=== PATIENT | male | born 1980 | race Asian ===

== ENCOUNTER 2021-01-30 12:13 | Emergency (ER) | payer BC ==
[~2021-01-30] VITALS: Ht 177.8 cm; Wt 121.8 kg
[2021-01-30 12:15] VITALS: BP 141/86
[2021-01-30] MEDS ORDERED: HYDROcodone/acetaminophen 10/325mg tab PO ONE (14:20)
== END 2021-01-30 14:34 | disposition home or self-care (01) ==
LOC: ER 12:13 → EDBD 12:13 → ER 14:34
DX: S86.812A Strain of other muscle(s) and tendon(s) at lower leg level, left leg, initial encounter (principal); M79.662 Pain in left lower leg; M79.89 Other specified soft tissue disorders; I25.2 Old myocardial infarction; M10.9 Gout, unspecified; Z98.890 Other specified postprocedural states; X58.XXXA Exposure to other specified factors, initial encounter; Y93.89 Activity, other specified; Y92.89 Other specified places as the place of occurrence of the external cause; Y99.8 Other external cause status
CPT/HCPCS: 73590; 99283